=== PATIENT | male | born 1990 | race Caucasian/White ===

== ENCOUNTER 2016-11-03 03:20 | Emergency (ER) | payer OTHER ==
[~2016-11-03] VITALS: Ht 180.3 cm; Wt 77.6 kg
[~2016-11-03 03:20] MED LIST: SYN.05 PO
[2016-11-03 03:45] VITALS: BP 131/87
--- NOTE | 2016-11-03 04:42 | NUR ---
PT TAKEN TO BED 2
--- NOTE | 2016-11-03 04:45 | NUR ---
PATIENT PRESENTS TO ED WITH RIGHT FLANK PAIN THAT RADIATES TO THE BACK X 1 DAY . PT DENIES N/V/D; SKIN IS PINK/WARM/DRY; AAOX4 WITH EVEN AND STEADY GAIT; LUNGS CLEAR BL; HR EVEN AND REGULAR; PT DENIES ANY FEVER, CP, SOB, OR COUGH AT THIS TIME; PATIENT STATES PAIN OF 7/10 AT THIS TIME; VSS; PATIENT POSITIONED FOR COMFORT; HOB ELEVATED; BEDRAILS UP X2; BED DOWN. ER MD MADE AWARE OF PT STATUS.
--- NOTE | 2016-11-03 05:16 | NUR ---
Patient being evaluated by physician DR SOLORIO at bedside.
[2016-11-03] MEDS ORDERED: KETOROLAC 30 MG/ML VIAL IM ONE (05:45)
[2016-11-03 06:03] VITALS: BP 127/82
--- NOTE | 2016-11-03 06:03 | NUR ---
Patient discharged with v/s stable. Written and verbal after care instructions given and explained. Patient alert, oriented and verbalized understanding of instructions. Ambulatory with steady gait. All questions addressed prior to discharge. ID band removed. Patient advised to follow up with PMD. Rx of NAPROSYN 500MG given. Patient educated on indication of medication including possible reaction and side effects. Opportunity to ask questions provided and answered.
== END 2016-11-03 06:03 | disposition home or self-care (01) ==
LOC: MED 03:20
DX: R10.9 Unspecified abdominal pain (principal)
CPT/HCPCS: 81002; 96372; 99283; J1885